=== PATIENT | female | born 1965 ===

== ENCOUNTER 2023-09-11 05:36 | Day surgery (SDC) | payer OTHER ==
[2023-09-05 10:19] LABS: PH,URINE 5.5 (5.0-8.0); URINE APPEARANCE Clear; URINE BILIRRUBIN Negative (NEGATIVE); URINE BLOOD Small; URINE COLOR Yellow; URINE GLUCOSE Negative (NEGATIVE); URINE LEUKOCYTE Small; URINE NITRATE Negative; URINE PROTEIN Negative (NEGATIVE); URINE UROBILINOGEN 0.2 E.U./dl
[2023-09-05 10:23] LABS: URINE BACTERIA 546.8 uL (0.0-1933); URINE EPITHELIAL CELLS 32.4 uL (0.0-38.8); URINE RBC 33.2 uL (0.0-20.8); URINE WBC 41.4 uL (0.0-23.2)
[2023-09-05 10:40] LABS: HEMATOCRIT 38.2 % (36.0-45.00); HEMOGLOBIN 12.8 g/dL (12.0-15.00); MEAN CELL VOLUME 91.9 fL (80.00-100.00); MEAN CORPUSCULAR HEMOGLOBIN 30.8 pg (27.00-32.0); MEAN CORPUSCULAR HGB CONC 33.6 g/dl (32.0-36.0); PLATELET COUNT 357 K/uL (150-450); RED BLOOD COUNT 4.16 M/uL (4.00-6.00); RED CELL DISTRIBUTION WIDTH 13.6 % (11.5-14.5)
[2023-09-05 11:00] LABS: INR 1.05; PARTIAL THROMBOPLASTIN TIME 26.1 SECONDS (22.0-34.0)
[2023-09-05 11:17] LABS: ALBUMIN 3.9 gm/dL (3.4-5.0); BILIRUBIN TOTAL 0.53 mg/dL (0.3-1.2); CALCIUM 10.1 mg/dL (8.5-10.1); CREATININE SERUM 0.65 mg/dL (0.55-1.02); GFR 93.95; GLOBULINA 3.6 G/DL (2.4-3.5); POTASSIUM 4.54 mEq/L (3.5-5.1); TOTAL PROTEIN 7.5 gm/dL (6.4-8.2)
[~2023-09-11 05:36] MED LIST: LOSARTAN POTASS25 MG PO; SYNTHROID75 MCG PO
[2023-09-11] MEDS ORDERED: CEFTRIAXONE SODIUM 2,000 MG VIAL IV SCH (11:15)
[2023-09-11] MEDS ORDERED: POVIDONE-IODINE 118 ML BOTT TOP ONE (11:15)
[2023-09-11] MEDS ORDERED: BUPIVACAINE LIPOSOME/PF 266 MG/20 ML VIAL IJ ONE (11:15)
[2023-09-11] MEDS ORDERED: DIBUCAINE 30 GM TUBE RECTAL ONE (11:15)
[2023-09-11] MEDS ORDERED: BUPIVACAINE HCL 30 ML VIAL IJ ONE (11:15)
[2023-09-11] MEDS ORDERED: METRONIDAZOLE/SODIUM CHLORIDE 500 MG/100 ML PIGGYBACK IV SCH (11:15)
[2023-09-11] MEDS ORDERED: HEMOSTATIC MATRIX 1 KIT KIT TOP ONE (11:15)
[2023-09-11] MEDS ORDERED: CELECOXIB200 MG PO (16:18)
[2023-09-11] MEDS ORDERED: NEURONTIN300 MG PO (16:18)
[2023-09-11] MEDS ORDERED: PERCOCET 5-3251 EACH PO (16:18)
== END 2023-09-11 17:20 | disposition home or self-care (01) ==
LOC: CIR.AMB 05:36
PROVIDERS: ATTEND Surgery
DX: K64.2 Third degree hemorrhoids (principal); K92.2 Gastrointestinal hemorrhage, unspecified; I10 Essential (primary) hypertension